=== PATIENT | male | born 1965 | race Caucasian/White ===

== ENCOUNTER 2022-07-16 11:26 | Emergency (ER) | payer MEDICAID ==
[~2022-07-16] VITALS: Ht 170.2 cm; Wt 81.6 kg
[2022-07-16 11:37] VITALS: BP 116/78
[2022-07-16] MEDS ORDERED: CYCL-711 PO (13:15)
[2022-07-16 13:38] VITALS: BP 116/78
--- NOTE | 2022-07-16 13:38 | NUR ---
Patient discharged with v/s stable. Written and verbal after care instructions given and explained. Patient alert, oriented and verbalized understanding of instructions. Ambulatory with steady gait. All questions addressed prior to discharge. ID band removed. Patient advised to follow up with PMD. Rx of cyclobenzaprine (sent) given. Patient educated on indication of medication including possible reaction and side effects. Opportunity to ask questions provided and answered.
== END 2022-07-16 13:35 | disposition home or self-care (01) ==
LOC: MED 11:26
DX: S11.89XA Other open wound of other specified part of neck, initial encounter (principal); R53.1 Weakness; M54.2 Cervicalgia; Z79.899 Other long term (current) drug therapy; Z98.890 Other specified postprocedural states; Y83.8 Other surgical procedures as the cause of abnormal reaction of the patient, or of later complication, without mention of misadventure at the time of the procedure
CPT/HCPCS: 99283